=== PATIENT | female | born 1995 | race Caucasian/White ===

== ENCOUNTER 2018-08-06 05:49 | Emergency (ER) | END 2018-08-06 07:31 | disposition home or self-care (01) ==

== ENCOUNTER 2018-08-08 15:41 | Emergency (ER) | END 2018-08-08 18:09 | disposition home or self-care (01) ==

== ENCOUNTER 2018-08-14 16:58 | Emergency (ER) | END 2018-08-14 17:30 | disposition home or self-care (01) ==